=== PATIENT | male | born 1990 | race Caucasian/White ===

== ENCOUNTER 2017-01-22 05:37 | Emergency (ER) | payer OTHER ==
--- NOTE | ~2017-01-22 | EKG ---
PATIENT: ANABEL ROGERS UNIT #: [id number] Ventricular Rate: 76 BPM Atrial Rate: 76 BPM P-R Interval: 128 ms QRS Duration: 86 ms Q-T Interval: 344 ms QTC Calculation(Bezet): 387 ms P [place]: 52 degrees Calculated R [place]: 31 degrees Calculated T [place]: 50 degrees Diagnosis Line: Normal sinus rhythm with sinus arrhythmia Diagnosis Line: Early repolarization Diagnosis Line: Normal ECG Diagnosis Line: No previous ECGs available Diagnosis Line: Confirmed by BINU CARTY MD ([id number]) on 01/24/2017 Diagnosis Line: 11:11:48 AM INTERPRETING MD: CARLOZ FREEMAN
[~2017-01-22 05:37] MED LIST: ABILIFY PO; CILOXAN5 ML OD; FLEXERIL10 MG PO; NO MEDICATIONS; PHENERGAN W/CO120 ML PO; PHENERGAN25 M1 PO; ROBITUSSIN A-C10 ML PO; SEIZURE MED; SEROQUEL50 MG; ULTRAM PO; ZITHROMAX PO; ZOFRAN ODT4 MG PO
[2017-01-22 05:40] LABS: BASOPHIL# 0.1 X10e3 (0-0.3); BASOPHIL% 0.7 % (0-2.5); DIFF IND NO; EOSINOPHIL# 0.1 X10e3 (0-0.7); HEMATOCRIT 48.6 % (38.0-50.0); HEMOGLOBIN 16.5 gm/dL (13.0-16.0); LYMPHOCYTE% 27.3 % (17.0-45.0); MEAN CELL VOLUME 90.1 FL (83-96); MEAN CORPUSCULAR HEMOGLOBIN 30.5 PG (28-34); MEAN CORPUSCULAR HGB CONC 33.9 g/dL (30-36); MEAN PLATELET VOLUME 9.7 FL (6.5-11.5); MONOCYTE# 0.8 X10e3 (0-1.0); MONOCYTE% 7.1 % (3.0-12.0); NEUTROPHIL% 63.9 % (40-75); PLATELET COUNT 240 X10e3 (140-420); RED BLOOD COUNT 5.39 X10e (3.90-5.60); RED CELL DISTRIBUTION WIDTH 13.5 % (11.0-15.5); WHITE BLOOD COUNT 10.9 X10e3 (4.0-10.5)
[2017-01-22 05:47] LABS: URINE SOURCE CLEAN CATCH
[2017-01-22 05:50] LABS: POC - CKMB <1.0 ng/mL (0.0-7.9); POC - MYOGLOBIN 34.1 ng/mL (0.0-169.0); POC - TROPONIN <0.05 ng/mL (<=0.05)
[2017-01-22 05:50] LABS: URINE APPEARANCE CLEAR; URINE BILIRUBIN NEG (NEG); URINE BLOOD NEG (NEG); URINE COLOR YELLOW; URINE GLUCOSE NEG (NORM); URINE KETONE NEG (NEG); URINE LEUKOCYTE ESTERASE NEG (NEG); URINE NITRATE NEG (NEG); URINE SPECIFIC GRAVITY >=1.030 (1.003-1.035); URINE UROBILINOGEN 0.2 MG/DL (NORM)
[2017-01-22 05:53] LABS: MICRO INDICATED? NO; URINE PROTEIN NEG (NEG)
[2017-01-22 05:55] LABS: BLOOD UREA NITROGEN 15 mg/dL (9-23); BUN/CREATININE RATIO 18.75; CALCIUM SERUM 9.3 mg/dL (8.4-10.2); CARBON DIOXIDE 23 mmol/L (22-31); CHLORIDE 108 mmol/L (100-111); CREATININE SERUM 0.8 mg/dL (0.6-1.4); GLOM FILT RATE Estimated ABOVE60 mL/min (>60); GLUCOSE FASTING 103 mg/dL (70-110); POTASSIUM 3.8 mmol/L (3.5-5.1); SALICYLATE <4.0 mg/dL; SODIUM 139 mmol/L (135-145)
[2017-01-22 05:57] LABS: ACETAMINOPHEN <10 ug/mL; ALCOHOL BLOOD <5 mg/dL (0)
[2017-01-22 05:59] LABS: AMPHETAMINE POS (NEG); BARBITURATES NEG (NEG); BENZODIAZEPINES NEG (NEG); COCAINE NEG (NEG); MARIJUANA POS (NEG); OPIATES NEG (NEG); TRICYCLIC ANTIDEPRESSANTS POS (NEG); U METHADONE NEG (NEG)
== END 2017-01-22 06:17 | disposition home or self-care (01) ==
LOC: SED 05:37
PROVIDERS: Emergency Medicine
DX: R00.2 Palpitations (principal); F41.9 Anxiety disorder, unspecified; F90.9 Attention-deficit hyperactivity disorder, unspecified type; F31.9 Bipolar disorder, unspecified; F17.210 Nicotine dependence, cigarettes, uncomplicated; Z88.0 Allergy status to penicillin; Z88.6 Allergy status to analgesic agent
CPT/HCPCS: 36415; 80048; 80307; 81003; 82553; 83874; 84484; 85025; 93005; 99283; G0480

== ENCOUNTER 2017-02-24 02:27 | Emergency (ER) | payer OTHER ==
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
== END 2017-02-24 03:35 | disposition home or self-care (01) ==
LOC: SED 02:27
DX: S16.1XXA Strain of muscle, fascia and tendon at neck level, initial encounter (principal); S29.012A Strain of muscle and tendon of back wall of thorax, initial encounter; S39.012A Strain of muscle, fascia and tendon of lower back, initial encounter; Z88.0 Allergy status to penicillin; Z88.6 Allergy status to analgesic agent; V49.50XA Passenger injured in collision with unspecified motor vehicles in traffic accident, initial encounter; Y93.89 Activity, other specified; Y92.410 Unspecified street and highway as the place of occurrence of the external cause; F17.200 Nicotine dependence, unspecified, uncomplicated
CPT/HCPCS: 72040; 72072; 72100; 99284